=== PATIENT | male | born 1990 ===

== ENCOUNTER 2019-10-04 16:35 | Emergency (ER) | payer BC, OTHER ==
[2019-10-04 16:57] VITALS: BMI 21.2
[2019-10-04] MEDS ORDERED: SODIUM CHLORIDE 0.9% 1000 ML INFUS.BAG IV ONE (17:47)
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
[2019-10-04 18:28] LABS: BASO % 0.7 % (0-2.0); EOS % 1.5 % (0-4.5); HEMATOCRIT 48.2 % (35.4-49); HEMOGLOBIN 16.2 GM/dl (11.7-16.9); LYMPH % 20.4 % (8-40); MCH 29.9 pg (25.7-33.7); MCHC 33.5 g/dl (32.0-35.9); MEAN CELL VOLUME 89.2 fl (80-96); MEAN PLT VOLUME 9.2 fl (7.5-11.1); MONO % 8.9 % (3.8-10.2); NEUT % 68.5 % (42.8-82.8); PLATELET COUNT 203 K/MM3 (134-434); RBC 5.41 M/mm3 (4.00-5.60); RDW 12.9 % (11.9-15.9)
[2019-10-04 18:31] LABS: INR 1.25 (0.82-1.09); PROTHROMBIN TIME (PATIENT) 13.9 SEC (10.2-13.0)
[2019-10-04 18:36] LABS: ALBUMIN 4.7 g/dl (3.4-5.0); CALCIUM 9.7 mg/dl (8.5-10); CREATININE 0.9 mg/dl (0.55-1.3); POTASSIUM 3.8 mmol/L (3.5-5.1); TOT PROT 7.2 g/dl (6.4-8.2)
--- NOTE | 2019-10-04 20:22 | PDOC ---
*Physical Exam - Vital Signs Last Vital Signs Temp Pulse Resp BP Pulse Ox 98.2 F 70 15 116/79 100 10/04/19 16:42 10/04/19 16:42 10/04/19 16:42 10/04/19 16:42 10/04/19 16:42 ED Treatment Course - LABORATORY CBC & Chemistry Diagram: 10/04/19 18:10 10/04/19 18:10 - ADDITIONAL ORDERS Additional order review: Laboratory Results 10/04/19 10/04/19 10/04/19 18:11 18:10 18:10 PT with INR 13.9 H INR 1.25 H PTT (Actin FS) D-Dimer < 215 Sodium 138 Potassium 3.8 Chloride 103 Carbon Dioxide 26 Anion Gap 9 BUN 17.0 Creatinine 0.9 Est GFR (CKD-EPI)AfAm 134.24 Est GFR (CKD-EPI)NonAf 115.82 Random Glucose 97 Calcium 9.7 Total Bilirubin 1.0 AST 18 ALT 14 Alkaline Phosphatase 62 Creatine Kinase 91 Troponin I Total Protein 7.2 Albumin 4.7 TSH 1.76 10/04/19 10/04/19 18:10 17:56 PT with INR INR PTT (Actin FS) 30.5 D-Dimer Sodium Potassium Chloride Carbon Dioxide Anion Gap BUN Creatinine Est GFR (CKD-EPI)AfAm Est GFR (CKD-EPI)NonAf Random Glucose Calcium Total Bilirubin AST ALT Alkaline Phosphatase Creatine Kinase Troponin I < 0.03 Total Protein Albumin TSH 10/04/19 18:10 RBC 5.41 MCV 89.2 MCHC 33.5 RDW 12.9 MPV 9.2 Neutrophils % 68.5 Lymphocytes % 20.4 Monocytes % 8.9 Eosinophils % 1.5 Basophils % 0.7 - Medications Given in the ED: ED Medications Discontinued Medications Generic Name Dose Route Start Last Admin Trade Name Freq PRN Reason Stop Dose Admin Sodium Chloride 1,000 ml 10/04/19 17:47 10/04/19 18:16 Normal Saline - IV 10/04/19 17:48 1,000 ml ONCE ONE Administration ED Progress Note - Progress Note Progress Note: 10/04/19 20:20 Care this patient was transferred to [place] from Dr. Ochoa at 1900 hrs. Patient is a 29-year-old male who comes in with palpitations. Patient has a work-up that is still pending a d-dimer and a TSH. Patient's d-dimer was negative however his TSH is still pending and I am not going to keep him any longer for the TSH. Patient instructed to follow-up with his engineering technology instructor for a Holter monitor or his primary care doctor and patient discharged we will call in the morning for the TSH. Discharge - Discharge Information Problems reviewed: Yes Clinical Impression/Diagnosis: Palpitations Condition: Stable - Follow up/Referral Referrals: Marlon Dickson MD [Staff Physician] - Beckie New MD [Primary Care Provider] - Eduardo Mcguire MD [Staff Physician] - - Patient Discharge Instructions Patient Printed Discharge Instructions: DI for Palpitations Additional Instructions: Your TSH is not back yet called [phone] in the morning for the results. please continue to avoid caffeinated products. Please call your primary care provide to arrange for follow up. Please also call the engineering technology instructor and arrange for follow up. You may need to wear a halter monitor for longer monitoring of your heart rhythm. Please return to the ER with any further concerns or complaints. Please drink plenty of water and stay well hydrated. - Post Discharge Activity
[2019-10-04 20:29] VITALS: BP 114/63; PULSE 61; TEMP 97.8
--- NOTE | 2019-10-05 09:42 | EKG ---
Test Reason : Blood Pressure : / mmHG Vent. Rate : 074 BPM Atrial Rate : 092 BPM P-R Int : 138 ms QRS Dur : 084 ms QT Int : 378 ms P-R-T Axes : 065 044 058 degrees QTc Int : 419 ms SINUS RHYTHM WITH MARKED SINUS ARRHYTHMIA OTHERWISE NORMAL ECG NO PREVIOUS ECGS AVAILABLE Confirmed by Delmar Rios MD ([id number]) on 10/05/2019 9:41:57 AM Referred By: ALETHA PRADO Confirmed By:Delmar Rios MD
== END 2019-10-04 20:30 | disposition home or self-care (01) ==
LOC: FER 16:35
PROC: 3E0337Z Introduction of Electrolytic and Water Balance Substance into Peripheral Vein, Percutaneous Approach (ICD-10-PCS; principal; 2019-10-04)
DX: R00.2 Palpitations (principal); Z91.013 Allergy to seafood
CPT/HCPCS: 36415; 71046-TC-FY; 80053; 82550; 84443; 84484; 85025; 85379; 85610; 85730; 93005; 99285-25; J7030